=== PATIENT | female | born 1985 | race Caucasian/White ===

== ENCOUNTER 2017-01-05 10:59 | Inpatient (IN) | payer BC ==
[~2017-01-05 10:59] MED LIST changes: -ADIPEX-P37.5 M1 PO; -AMBIEN10 MG PO; -NIACIN1000 MG PO; -PEPCID20 MG PO; -POTASSIUM CITR10 MEQ PO; -REGLAN10 MG PO
[2017-01-11] MEDS ORDERED: LOVAZA1 GM PO (10:54)
[2017-01-11] MEDS ORDERED: REQUIP4 MG PO (10:54)
[2017-01-11] MEDS ORDERED: NEURONTIN600 MG PO (10:54)
[2017-01-11] MEDS ORDERED: BENICAR20 MG PO (10:56)
[2017-01-11] MEDS ORDERED: LOFIBRA200 MG PO (10:57)
[2017-01-11] MEDS ORDERED: LEVEMIR100 UNIT/1 SQ (10:58)
[2017-01-11] MEDS ORDERED: FERROUS SULFAT325 MG PO (11:00)
[2017-01-11] MEDS ORDERED: LIPITOR80 MG PO (11:01)
[2017-01-11] MEDS ORDERED: VITAMIN D5000 UNIT PO (11:03)
[2017-01-11] MEDS ORDERED: POTASSIUM CITR10 MEQ PO (11:03)
[2017-01-11] MEDS ORDERED: CYMBALTA60 MG PO (11:04)
[2017-01-11] MEDS ORDERED: ACETAMINOPHEN325 MG PO (11:04)
[2017-01-11] MEDS ORDERED: ACETAZOLAMIDE250 MG PO (11:04)
[2017-01-11] MEDS ORDERED: ZENPEP DR 5,001 EACH PO (11:06)
[2017-01-11] MEDS ORDERED: PHENERGAN25 M1 PO (11:06)
[2017-01-11] MEDS ORDERED: NIACIN1000 MG PO (11:06)
[2017-01-11] MEDS ORDERED: AMBIEN10 MG PO (11:07)
[2017-01-11] MEDS ORDERED: PEPCID20 MG PO (11:07)
[2017-01-11] MEDS ORDERED: ADIPEX-P37.5 M1 PO (11:08)
[2017-01-11] MEDS ORDERED: REGLAN10 MG PO (11:08)
== END 2017-01-08 14:20 | disposition home or self-care (01) | DRG 642 ==
LOC: ER 10:59 → MED 15:31
PROVIDERS: ADMIT Internal Medicine
DX: E78.1 Pure hyperglyceridemia (principal); K86.1 Other chronic pancreatitis; G61.0 Guillain-Barre syndrome; K86.3 Pseudocyst of pancreas; E28.2 Polycystic ovarian syndrome; R10.13 Epigastric pain; G25.81 Restless legs syndrome; G93.2 Benign intracranial hypertension; E10.9 Type 1 diabetes mellitus without complications; Z90.49 Acquired absence of other specified parts of digestive tract; Z79.4 Long term (current) use of insulin; Z79.899 Other long term (current) drug therapy; Z88.8 Allergy status to other drugs, medicaments and biological substances; Z84.89 Family history of other specified conditions; Z83.79 Family history of other diseases of the digestive system; R51 Headache
CPT/HCPCS: 36415; A9541; J2550; J2765

== ENCOUNTER → 2017-01-05 | Emergency (ER) | payer BC ==
[~2017-01-05] MED LIST: ACETAMINOPHEN325 MG PO; ACETAZOLAMIDE250 MG PO; ADIPEX-P37.5 M1 PO; AMBIEN10 MG PO; AMBIEN5 MG PO; ASPIR 8181 MG PO; BACTROBAN15 GM TOP; BENICAR20 MG PO; CARAFATE1 GM PO; CELEXA20 MG PO; CULTURELLE1 EACH PO; CYMBALTA60 MG PO; FERROUS SULFAT325 MG PO; GLUCOPHAGE500 MG PO; IMMUNE GLOBULIN IV; KETOCONAZOLE15 GM TOP; LEVEMIR100 UNIT/1 SQ; LIPITOR80 MG PO; LOFIBRA200 MG PO; LOVAZA1 G PO; LOVAZA1 GM PO; NEURONTIN300 MG PO; NEURONTIN600 MG PO; NIACIN1000 MG PO; NIACIN500 M1 PO; NIACIN500 MG PO; NIASPAN500 MG PO; OXYCODON-ACETA1 EAC1 PO; PEPCID20 MG PO; PERCOCET 10-321 EACH PO; PERCOCET 7.5-31 EACH PO; PHENERGAN25 M1 PO; POLYETHYLENE GL17 GM PO; POTASSIUM CITR10 MEQ PO; PRAVACHOL20 MG PO; PROTONIX40 MG PO; REGLAN10 MG PO; REQUIP2 MG PO; REQUIP4 MG PO; TRICOR145 MG PO; VANCOCIN HCL125 MG PO; VANCOMYCIN HCL125 MG PO; VITAMIN D35000 UNI1 PO; VITAMIN D5000 UNIT PO; ZENPEP DR 5,001 EACH PO
== END | disposition admitted as inpatient to this hospital (09) ==
LOC: ER 10:59
DX: K85.90 Acute pancreatitis without necrosis or infection, unspecified (principal); Z79.82 Long term (current) use of aspirin; Z79.4 Long term (current) use of insulin; Z79.899 Other long term (current) drug therapy; Z88.8 Allergy status to other drugs, medicaments and biological substances
CPT/HCPCS: 36415; 96361; 96374; 96375; 96376; J2550

== ENCOUNTER 2017-01-24 15:51 | Emergency (ER) | payer BC ==
[~2017-01-24 15:51] MED LIST changes: +ADIPEX-P37.5 M1 PO; +AMBIEN10 MG PO; +NIACIN1000 MG PO; +PEPCID20 MG PO; +POTASSIUM CITR10 MEQ PO; +REGLAN10 MG PO
== END 2017-01-24 21:45 | disposition short-term general hospital (02) ==
LOC: ER 15:51
DX: K29.80 Duodenitis without bleeding (principal); I10 Essential (primary) hypertension; E11.9 Type 2 diabetes mellitus without complications; E78.1 Pure hyperglyceridemia; Z90.49 Acquired absence of other specified parts of digestive tract; Z79.4 Long term (current) use of insulin; Z79.82 Long term (current) use of aspirin; Z79.899 Other long term (current) drug therapy; Z88.8 Allergy status to other drugs, medicaments and biological substances
CPT/HCPCS: 36415; 96361; 96374; 96375; 96376; J1885; J2550; Q9967

== ENCOUNTER 2017-02-22 15:54 | Emergency (ER) | payer BC | END 2017-02-22 20:05 | disposition admitted as inpatient to this hospital (09) | LOC: ER 15:54 | DX: K85.90 Acute pancreatitis without necrosis or infection, unspecified (principal); I10 Essential (primary) hypertension; E11.9 Type 2 diabetes mellitus without complications; E78.5 Hyperlipidemia, unspecified; Z90.49 Acquired absence of other specified parts of digestive tract; Z79.82 Long term (current) use of aspirin; Z79.4 Long term (current) use of insulin; Z79.899 Other long term (current) drug therapy; Z88.8 Allergy status to other drugs, medicaments and biological substances | CPT/HCPCS: 96361; 96374; 96375; 96376 ==

== ENCOUNTER 2017-02-22 15:54 | Observation (INO) | payer BC ==
[~2017-02-22] VITALS: Ht 175.3 cm; Wt 100.0 kg
--- NOTE | 2017-02-24 17:04 | NUR ---
REPORT GIVEN TO CHASITY RODAS TO TAKE OVER CARE OF PATIENT
--- NOTE | 2017-02-24 19:32 | NUR ---
REPORT GIVEN TO ADRIANNA BARRERA
== END 2017-02-26 18:07 | disposition home or self-care (01) ==
LOC: ER 15:54 → MED 20:06
PROVIDERS: ADMIT Internal Medicine
DX: R10.9 Unspecified abdominal pain (principal); N30.90 Cystitis, unspecified without hematuria; E10.42 Type 1 diabetes mellitus with diabetic polyneuropathy; G61.0 Guillain-Barre syndrome; E28.2 Polycystic ovarian syndrome; Z83.49 Family history of other endocrine, nutritional and metabolic diseases; Z88.8 Allergy status to other drugs, medicaments and biological substances; Z79.82 Long term (current) use of aspirin; Z79.899 Other long term (current) drug therapy; Z90.49 Acquired absence of other specified parts of digestive tract; Z90.89 Acquired absence of other organs
CPT/HCPCS: 36415; 96361; 96375; 96376; G0378; J2550; Q9963; Q9967

== ENCOUNTER 2017-04-03 16:14 | Inpatient (IN) | payer BC ==
[~2017-04-03] VITALS: Ht 175.3 cm; Wt 100.2 kg
== END 2017-04-08 14:35 | disposition home or self-care (01) | DRG 642 ==
LOC: ER 16:14 → MED 04-04 02:35
PROVIDERS: ADMIT Internal Medicine
PROC: 0DBQ8ZX Excision of Anus, Via Natural or Artificial Opening Endoscopic, Diagnostic (ICD-10-PCS; principal; 2017-04-07)
DX: E78.1 Pure hyperglyceridemia (principal); E87.2 Acidosis; K86.1 Other chronic pancreatitis; G61.0 Guillain-Barre syndrome; K55.9 Vascular disorder of intestine, unspecified; R10.12 Left upper quadrant pain; R10.13 Epigastric pain; Z90.49 Acquired absence of other specified parts of digestive tract; K62.0 Anal polyp; E28.2 Polycystic ovarian syndrome; G25.81 Restless legs syndrome; E10.9 Type 1 diabetes mellitus without complications; G93.2 Benign intracranial hypertension; Z79.82 Long term (current) use of aspirin; Z79.4 Long term (current) use of insulin; Z79.899 Other long term (current) drug therapy; Z88.8 Allergy status to other drugs, medicaments and biological substances; Z84.89 Family history of other specified conditions; L84 Corns and callosities; E66.3 Overweight; Z68.32 Body mass index [BMI] 32.0-32.9, adult; K86.89 Other specified diseases of pancreas
CPT/HCPCS: 36415; 74175; 96361; 96374; 96375; 96376; J1650; J2704; Q9967

== ENCOUNTER 2017-07-27 17:29 | Inpatient (IN) | payer BC ==
[~2017-07-27] VITALS: Ht 175.3 cm; Wt 102.1 kg
== END 2017-08-05 13:00 | disposition home or self-care (01) | DRG 439 ==
LOC: ER 17:29 → MED 07-28 01:03
PROVIDERS: ADMIT Internal Medicine
PROC: 02HV33Z Insertion of Infusion Device into Superior Vena Cava, Percutaneous Approach (ICD-10-PCS; principal; 2017-08-03)
DX: K85.90 Acute pancreatitis without necrosis or infection, unspecified (principal); M86.172 Other acute osteomyelitis, left ankle and foot; L03.116 Cellulitis of left lower limb; K86.1 Other chronic pancreatitis; E78.1 Pure hyperglyceridemia; K76.0 Fatty (change of) liver, not elsewhere classified; Z79.82 Long term (current) use of aspirin; E28.2 Polycystic ovarian syndrome; G25.81 Restless legs syndrome; E10.69 Type 1 diabetes mellitus with other specified complication; E87.6 Hypokalemia; F41.8 Other specified anxiety disorders
CPT/HCPCS: 36415; 73718; 93922; 96374; 96375; C1751; J0696; J1650; J3370; J7050; Q9963; Q9967